=== PATIENT | female | born 2000 | race African-American/Black ===

== ENCOUNTER 2021-09-29 11:51 | Emergency (ER) | payer MEDICAID, SELFPAY ==
[2021-09-29 12:23] VITALS: BP 127/76; PULSE 68; RESP 16; O2SAT 96
[2021-09-29 13:50] LABS: Appearance Urine Clear (Clear); Bilirubin Urine Negative (Negative); Blood Urine Negative (Negative); Color Urine Yellow (Yellow); Glucose Urine UA Negative (Negative); Ketones Urine Negative (Negative); Leukocyte Esterase Ur Negative LEU/UL (Negative); Nitrate Urine Negative (Negative); Protein Urine Negative (Negative); Specific Grav Ur 1.025 (1.001-1.035); Urobilinogen Urine 0.2 mg/dL (<2.0); pH Urine 6.5 (5.0-9.0)
[2021-09-29 13:55] LABS: Add Urine Microscopic? NO
[2021-09-29 15:43] VITALS: BP 130/87; PULSE 87; RESP 18; O2SAT 100
--- NOTE | 2021-09-29 16:25 | ED.FEMALEGU ---
HPI - Female Genitourinary General Chief complaint: Urogenital-Female Stated complaint: uterus pains Time Seen by Provider: 09/29/21 15:31 Source: patient Mode of arrival: ambulatory Limitations: no limitations History of Present Illness HPI Narrative: This is a 21 year old female who presents for evaluation of pelvic pain. She noticed sharp suprapubic pain this morning. She is have constant pressure with intermittent shooting to right lower abdomen. She has nausea but denies vomiting. She denies abnormal vaginal discharge or urinary symptoms. Her pain is worse with movement. Her last menstrual cycle ws 2 weeks ago. She denies history of ovarian cyst. She reports pain is 4/10/ She has not taken anything for pain. Related Data Allergies Allergy/AdvReac Type Severity Reaction Status Date / Time shellfish derived Allergy Unknown Verified 02/02/20 15:23 ENVIRONMENTAL Allergy Mild Uncoded 02/02/20 15:23 Review of Systems Review of Systems: All systems reviewed & are unremarkable except as noted in HPI and below PMFSH Past Medical History Medical History Patient denies medical problems Surgical History Surgical History History of appendectomy Social History Social History Smoking status: Never smoker Alcohol intake: never Exam Const: General: no acute distress and alert Orientation/consciousness: patient oriented x3 Eyes: EOM: EOMs intact bilaterally Resp: Effort & Inspection: normal respiratory effort and no retractions Auscultation: clear to auscultation bilaterally Cardio: Rate: regular rate Rhythm: regular rhythm Heart sounds: no murmurs GI: GI Palp: Yes Soft to palpation, Yes Tenderness to palpation present (GI) (suprapubic), No Guarding due to palpation present (GI) and No Rigid due to palpation Auscultation: normal bowel sounds : Speculum Exam - Vagina: normal vaginal discharge Speculum Exam - Cervix: Cervical os closed Bimanual exam- vagina & uterus: cervical motion tenderness Back/Spine/Pelvis: Back: no CVA tenderness Skin: General skin exam: normal color Rashes: no rashes Neuro: General: patient oriented x3, moves all extremities and CN's II-XI intact bilaterally Extrem: General: normal to inspection Psych: Mental Status: mental status grossly normal Affect: normal affect Course Reevaluation(s) Reevaluation #1: Patient already had appendix taken out. She has CMT on pelvic exam. Will treat with antibiotics and have her follow up with [facility]. Date: 09/29/21 Time: 16:45 Vital Signs Vital signs: Vital Signs Pulse Rate 68 09/29/21 12:23 Respiratory Rate 16 09/29/21 12:23 Blood Pressure 127/76 09/29/21 12:23 Pulse Oximetry 96 09/29/21 12:23 Pulse Rate 87 09/29/21 15:43 Respiratory Rate 18 09/29/21 15:43 Blood Pressure 130/87 09/29/21 15:43 Pulse Oximetry 100 09/29/21 15:43 MDM - Female Genitourinary Lab Data Labs: Lab Results 09/29/21 09/29/21 09/29/21 Range/Units 13:30 16:46 16:46 Urine Color Yellow (Yellow) Urine Appearance Clear (Clear) Urine pH 6.5 (5.0-9.0) Ur Specific [place] 1.025 (1.001-1.035) Urine Protein Negative (Negative) mg/dL Urine Glucose (UA) Negative (Negative) mg/dL Urine Ketones Negative (Negative) mg/dL Ur Blood (Man) Negative (Negative) Urine Nitrate Negative (Negative) Urine Bilirubin Negative (Negative) Urine Urobilinogen 0.2 (<2.0) mg/dL Leukocyte Esterase Rfl Negative (Negative) YARIEL/UL C.trachomatis RNA (TMA) Pending N.gonorrhoeae RNA (TMA) Pending Trichomonas Direct ID Negative (Negative) UCG Bedside Result Negative Reference Range: Negative Discharge Plan Discharge
[2021-09-29] MEDS: DOXYCYCLINE HYCLATE 100 MG TABLET PO (16:59)
[2021-09-29] MEDS: cefTRIAXone 1 GM VIAL 0.5 GM IM (17:00)
[2021-09-29] MEDS: LIDOCAINE HCL 1% LOCAL INJ 20 ML VIAL (17:00)
[2021-09-29 17:34] VITALS: BP 102/78; PULSE 77; RESP 18; O2SAT 98
== END 2021-09-29 17:34 | disposition home or self-care (01) ==
PROVIDERS: Emergency Medicine; Emergency Provider General Practice
DX: N73.0 Acute parametritis and pelvic cellulitis (principal)
CPT/HCPCS: 81003; 81025; 87070; 87491; 87591; 87808; 96372; 99284; A9270; J0696

== ENCOUNTER 2022-05-29 11:55 | Outpatient (CLI) | payer OTHER, SELFPAY ==
--- NOTE | ~2022-05-29 | XR_ITS ---
XR knee LT min 4V DATE: 05/29/2022 12:31 INDICATION: Left knee pain TECHNIQUE: Jenera and weightbearing AP and PA views COMPARISON: None FINDINGS: No fracture or dislocation or joint effusion. Joint spaces are preserved. No radiopaque int ra-articular loose body or chondrocalcinosis. IMPRESSION: Negative Reviewed, dictated and finalized at location B. STORER IMPRESSION: Negative
--- NOTE | ~2022-05-29 | XR_ITS ---
XR chest 2V DATE: 05/29/2022 12:30 INDICATION: Intermittent augmentations, lightheadedness TECHNIQUE: 04/12/2012 two-view chest COMPARISON: None FINDINGS: Normal heart size. No hilar or mediastinal enlargement. No pulmonary infiltrate or consolid ation, pleural effusion or pulmonary vascular congestion. Thoracic and lumbar scoliosis. IMPRESSION: No active cardiopulmonary disease Reviewed, dictated and finalized at location B. ASSISTANT
--- NOTE | ~2022-05-29 | XR_ITS ---
XR cervical spine 4-5V DATE: 05/29/2022 12:30 INDICATION: Neck pain. Left arm tingling. TECHNIQUE: AP, open-mouth, lateral, swimmer views COMPARISON: None FINDINGS: There is reversal of cervical curvature which may be due to muscle spasm. C1 and C2 are normally aligned and the odontoid process is intact. Cervical interspaces are intact. N o fracture or dislocation, locked facet or prevertebral soft tissue swelling. IMPRESSION: Reversal of cervical curvature; otherwise negative Reviewed, dictated and finalized at location B. LER OPERATOR
== END 2022-05-29 11:56 | disposition home or self-care (01) ==
LOC: ANHIMG 12:01
PROVIDERS: PCP Internal Medicine; Visit Provider Internal Medicine
DX: Z00.00 Encounter for general adult medical examination without abnormal findings (principal); M54.2 Cervicalgia; M25.562 Pain in left knee
CPT/HCPCS: 71046; 72050; 73564

== ENCOUNTER 2022-12-23 11:28 | Emergency (ER) | payer OTHER, SELFPAY ==
[2022-12-23 11:37] VITALS: BP 129/68; PULSE 78; RESP 16; TEMP 37.2; O2SAT 99
--- NOTE | 2022-12-23 12:06 | ED.URI ---
HPI - URI/Sore Throat General Chief Complaint: Upper Respiratory Infection Stated Complaint: Sinus/Sore Throat Time Seen by Provider: 12/23/22 12:01 Source: patient and RN notes reviewed Mode of arrival: ambulatory Limitations: no limitations History of Present Illness HPI Narrative: Patient presents today with a 2 day history of postnasal drip, congestion, sore throat, headache. Denies fever shortness of breath. She takes an allergy pill daily for her seasonal allergies, but has not been taking any additional evtg-obn-[id number] medicine for her current symptoms. Currently rates her pain 4/10. Related Data Home Medications Medication Instructions Recorded Confirmed naproxen 500 mg tablet 500 mg PO BID 12/23/22 12/23/22 omeprazole 20 mg capsule,delayed 20 mg PO DAILY 12/23/22 12/23/22 release Allergies Allergy/AdvReac Type Severity Reaction Status Date / Time shellfish derived Allergy Unknown Unknown Verified 12/23/22 11:31 ENVIRONMENTAL Allergy Unknown Unknown Uncoded 12/23/22 11:31 Review of Systems Review of Systems: CONSTITUTIONAL: Denies body aches, fever, chills, or sweats. EYES: Denies visual changes, redness, or discharge. ENT: Denies rhinorrhea, or otalgia.+ Congestion, sore throat, postnasal drip CARDIOVASCULAR: Denies chest pain, palpitations, or edema. RESPIRATORY: Denies cough or dyspnea. GASTROINTESTINAL: Denies abdominal pain, nausea, vomiting, or diarrhea. GENITOURINARY: Denies dysuria or hematuria. SKIN: Denies rash, itching, or wounds. MUSCULOSKELETAL: Denies back pain, joint pain, or myalgia. NEUROLOGIC: Denies numbness, tingling, or weakness.+ headache PSYCH: Denies depression or anxiety. [facility] Past Medical History Medical History (Updated 12/23/22 @ 12:11 by Mellissa Rodriguez, TAMIR, BC) Appendicitis with peritonitis Patient denies medical problems Seasonal allergies Surgical History Surgical History History of appendectomy Social History Social History Smoking status: Never smoker Alcohol intake: never Comments At time of signature, I have reviewed and agree with nursing past medical, surgical, social and family history unless otherwise noted. Please see nursing chart for further information. There is no relevant family history pertinent to the presenting complaint Exam Narrative: GENERAL: Well-appearing, well-nourished, and in no acute distress. HEAD: Normocephalic, atraumatic. EYES: EOMI. No redness or drainage. Conjunctivae normal. ENT: Mucous membranes pink and moist. Nares congested. No rhinorrhea. TMs normal bilaterally. Throat normal. Uvula midline. NECK: Normal AROM. Supple. bilateral anterior cervical chain lymphadenopathy. CHEST: No respiratory distress. Clear to auscultation. HEART: Regular rate and rhythm. No murmur appreciated. Normal peripheral pulses. EXTREMITIES: Normal range of motion. No edema. SKIN: Warm, dry, no rash. Capillary refill normal. Normal skin turgor. NEURO: No focal deficits. Alert and oriented x3. Gait steady. PSYCH: Normal affect. No signs of depression or anxiety. Course Course Level of Care: Express Care Visit Vital Signs Vital signs: Vital Signs Temperature 99.0 F 12/23/22 11:37 Pulse Rate 78 12/23/22 11:37 Respiratory Rate 16 12/23/22 11:37 Blood Pressure 129/68 12/23/22 11:37 Pulse Oximetry 99 12/23/22 11:37 Oxygen Delivery Room Air 12/23/22 11:37 Temperature 99.0 F 12/23/22 11:37 Pulse Rate 78 12/23/22 11:37 Respiratory Rate 16 12/23/22 11:37 Blood Pressure 129/68 12/23/22 11:37 Pulse Oximetry 99 12/23/22 11:37 Oxygen Delivery Room Air 12/23/22 11:37 Reviewed. Pt has been instructed to follow up with her PCP regarding her elevated blood pressure today. MDM - URI/Sore Throat MDM Narrative Medical decision making narrative:
== END 2022-12-23 12:19 | disposition home or self-care (01) ==
PROVIDERS: Emergency Provider Nurse Practitioner; PCP Internal Medicine
DX: J06.9 Acute upper respiratory infection, unspecified (principal)
CPT/HCPCS: 87081; 87880; 99213; G0463

== ENCOUNTER 2024-02-23 11:03 | Emergency (ER) | payer OTHER, SELFPAY ==
[2024-02-23 11:13] VITALS: BP 121/68; PULSE 68; RESP 18; TEMP 37.2; O2SAT 100
--- NOTE | 2024-02-23 11:39 | ED.EYEPROB ---
HPI - Eye Problem General Chief complaint: Eye Problems Stated complaint: Left Eye Irritation Time Seen by Provider: 02/23/24 11:39 Source: patient, RN notes reviewed and old records reviewed Mode of arrival: ambulatory Limitations: no limitations History of Present Illness HPI Narrative: Patient complains of painful lump below the left eye. She reports this has been present for couple of days, worsening. She denies any visual disturbances. She denies any injury or trauma. She voices no other concerns or complaints at this time Related Data Allergies Allergy/AdvReac Type Severity Reaction Status Date / Time shellfish derived Allergy Unknown Unknown Verified 02/23/24 11:07 ENVIRONMENTAL Allergy Unknown Unknown Uncoded 02/23/24 11:07 Review of Systems Review of Systems: All systems reviewed & are unremarkable except as noted in HPI and below Constitutional: Constitutional: Reports no additional constitutional complaints Eyes: Eyes: Reports as per HPI, Reports no additional eye complaints and Denies change in vision ENT: Reports system reviewed and no additional complaints, except as documented and Reports as per HPI Cardiovascular: Cardiovascular: Reports no additional cardiovascular complaints Respiratory: Respiratory: Reports no additional respiratory complaints Gastrointestinal: Gastrointestinal: Reports no additional gastrointestinal complaints [facility] Past Medical History Medical History (Updated 02/24/24 @ 00:00 by Ravinder Martin) Appendicitis with peritonitis Patient denies medical problems Seasonal allergies Surgical History Surgical History History of appendectomy Social History Social History Smoking status: Never smoker Alcohol intake: never Comments At the time of my signature, I reviewed and agree with the nursing past medical, surgical, social, and family history. There is no relevant family history pertinent to the patient complaint. Exam Const: General: cooperative, no acute distress, alert and awake Orientation/consciousness: oriented to person, oriented to place and oriented to time HENMT: Head: normal to inspection Mouth: Yes moist mucous membranes Eyes: Alignment and Position: alignment normal and position normal Eyelids: eyelid abnormality left lower eyelid swelling, tenderness and other (Pustule at lower lash line) Conjunctivae: conjunctivae normal Sclera: sclerae normal Cornea: corneas normal Pupils: Equal, round and reactive pupils present and Pupils normal by confrontation EOM: EOMs intact bilaterally Resp: Effort & Inspection: normal respiratory effort and able to speak in complete sentences Auscultation: clear to auscultation bilaterally, no crackles, no rales, no rhonchi and no wheezes Cardio: Palpation: normal PMI Rate: regular rate Rhythm: regular rhythm Heart sounds: S1 normal heart sound present and S2 normal heart sound present Neuro: General: oriented to person, oriented to place and oriented to time Cranial nerves: Yes CN's II-XII intact bilaterally Psych: Appearance: grossly normal Thought process: Normal thought process present Insight: Good insight present (Psych) Judgement: Good judgement present (Psych) Course Course Level of Care: Express Care Visit Vital Signs Vital signs: Vital Signs Temperature 99 F 02/23/24 11:13 Pulse Rate 02/23/24 11:13 Respiratory Rate 02/23/24 11:13 Blood Pressure 121/68 02/23/24 11:13 Pulse Oximetry 100 02/23/24 11:13 Oxygen Delivery Room Air 02/23/24 11:13 Temperature 99 F 02/23/24 11:13 Pulse Rate 02/23/24 11:13 Respiratory Rate 02/23/24 11:13 Blood Pressure 121/68 02/23/24 11:13 Pulse Oximetry 100 02/23/24 11:13 Oxygen Delivery Room Air 02/23/24 11:13 Reviewed MDM - Eye Problem MDM Narrative Medical decision making narrative: taras
== END 2024-02-23 12:30 | disposition home or self-care (01) ==
PROVIDERS: Emergency Provider Nurse Practitioner Family; PCP Internal Medicine
DX: H00.15 Chalazion left lower eyelid (principal)
CPT/HCPCS: 99213; G0463

== ENCOUNTER 2024-03-13 17:25 | Emergency (ER) | payer OTHER, SELFPAY ==
[2024-03-13 17:27] VITALS: BP 133/72; PULSE 83; RESP 20; TEMP 37.7; O2SAT 100
--- NOTE | 2024-03-13 17:51 | ED.URI ---
HPI - URI/Sore Throat General Chief Complaint: Upper Respiratory Infection Stated Complaint: Cough Time Seen by Provider: 03/13/24 17:51 Source: patient, RN notes reviewed and old records reviewed Mode of arrival: ambulatory Limitations: no limitations History of Present Illness HPI Narrative: Patient presents with complaints of 2 days of cough and runny nose. She does have a low-grade fever. She reports she has been taking Advil cold and Sinus with moderate results. She is not in any distress. She voices no other concerns or complaints at this time. Related Data Allergies Allergy/AdvReac Type Severity Reaction Status Date / Time shellfish derived Allergy Unknown Unknown Verified 03/13/24 17:27 ENVIRONMENTAL Allergy Unknown Unknown Uncoded 03/13/24 17:27 Review of Systems Review of Systems: All systems reviewed & are unremarkable except as noted in HPI and below Constitutional: Constitutional: Reports no additional constitutional complaints ENT: Reports system reviewed and no additional complaints, except as documented, Reports as per HPI and Reports nasal discharge Cardiovascular: Cardiovascular: Reports as per HPI and Reports no additional cardiovascular complaints Respiratory: Respiratory: Reports as per HPI, Reports no additional respiratory complaints, Reports cough, Denies stridor and Denies wheezing Gastrointestinal: Gastrointestinal: Reports no additional gastrointestinal complaints [facility] Past Medical History Medical History Appendicitis with peritonitis Patient denies medical problems Seasonal allergies Surgical History Surgical History History of appendectomy Social History Social History Smoking status: Never smoker Alcohol intake: never Comments At the time of my signature, I reviewed and agree with the nursing past medical, surgical, social, and family history. There is no relevant family history pertinent to the patient complaint. Exam Const: General: cooperative, no acute distress, alert and awake Orientation/consciousness: oriented to person, oriented to place and oriented to time HENMT: Head: normal to inspection Ears: TM's normal bilaterally Mouth: Yes moist mucous membranes Throat: postnasal drainage Resp: Effort & Inspection: normal respiratory effort and able to speak in complete sentences Auscultation: clear to auscultation bilaterally, no crackles, no rales, no rhonchi and no wheezes Cardio: Palpation: normal PMI Rate: regular rate Rhythm: regular rhythm Heart sounds: S1 normal heart sound present and S2 normal heart sound present Neuro: General: oriented to person, oriented to place and oriented to time Cranial nerves: Yes CN's II-XII intact bilaterally Psych: Appearance: grossly normal Thought process: Normal thought process present Insight: Good insight present (Psych) Judgement: Good judgement present (Psych) Course Course Level of Care: Express Care Visit Vital Signs Vital signs: Vital Signs Temperature 100 F H 03/13/24 17:27 Pulse Rate 83 03/13/24 17:27 Respiratory Rate 20 03/13/24 17:27 Blood Pressure 133/72 03/13/24 17:27 Pulse Oximetry 100 03/13/24 17:27 Oxygen Delivery Room Air 03/13/24 17:27 Temperature 100 F H 03/13/24 17:27 Pulse Rate 83 03/13/24 17:27 Respiratory Rate 20 03/13/24 17:27 Blood Pressure 133/72 03/13/24 17:27 Pulse Oximetry 100 03/13/24 17:27 Oxygen Delivery Room Air 03/13/24 17:27 Reviewed MDM - URI/Sore Throat MDM Narrative Medical decision making narrative: Patient negative for COVID and flu. She is nontoxic appearing, stable for discharge home with supportive care measures. Prescribed cough medications, advised to take Tylenol and/or ibuprofen per package instructions as needed for fever or pain. Work note provided.
[2024-03-13 18:16] LABS: EDCOVIDSCREEN Negative (Negative); EDINFLUASCREEN Negative (Negative); EDINFLUBSCREEN Negative (Negative)
== END 2024-03-13 18:27 | disposition home or self-care (01) ==
PROVIDERS: Emergency Provider Nurse Practitioner Family; PCP Internal Medicine
DX: J06.9 Acute upper respiratory infection, unspecified (principal); Z20.822 Contact with and (suspected) exposure to COVID-19
CPT/HCPCS: 87426; 87804; 99213; G0463

== ENCOUNTER 2024-06-15 08:20 | Emergency (ER) | payer OTHER, SELFPAY ==
--- NOTE | ~2024-06-15 | XR_ITS ---
XR chest 2V Ordering provider: Ella Santos APRN History: 24 years Female with . cough fever x 4 days . Comparison: May 29, 2022 FINDINGS: MEDIASTINUM: The cardiac silhouette is not enlarged. LUNGS: No \effusions or pneumothorax. Bilateral perihilar prominent bronchovascular markings with min imal opacification in the left perihilar area suggestive of bronchopneumonia. Follow-up advised. OTHER: No free air under the diaphragm. IMPRESSION: Early bronchopneumonia. Follow-up to resolution is advised. Reviewed, dictated and finalized at location A. ICATIONS DEVELOPER
[2024-06-15 08:27] VITALS: BP 122/75; PULSE 82; RESP 16; TEMP 36.7; O2SAT 100
--- NOTE | 2024-06-15 08:34 | ED.URI ---
HPI - URI/Sore Throat General Chief Complaint: Upper Respiratory Infection Stated Complaint: flu like symptoms Time Seen by Provider: 06/15/24 08:35 Source: patient, RN notes reviewed and old records reviewed Mode of arrival: ambulatory Limitations: no limitations History of Present Illness HPI Narrative: [age] year female presents to the [facility] with 2 day history of feeling feverish, cough, congestion, intermittent dizziness. Reports that she feels like she is wheezing. Has taken Advil cough cold. Onset (ago): day(s) (2) Related Data Allergies Allergy/AdvReac Type Severity Reaction Status Date / Time shellfish derived Allergy Unknown Unknown Verified 06/15/24 08:49 ENVIRONMENTAL Allergy Unknown Unknown Uncoded 06/15/24 08:49 Review of Systems Review of Systems: All systems reviewed & are unremarkable except as noted in HPI and below Constitutional: Constitutional: Reports as per HPI, Reports body ache(s), Reports chills and Reports fever(s) (Subjective) ENT: Reports system reviewed and no additional complaints, except as documented Cardiovascular: Cardiovascular: Reports no additional cardiovascular complaints, Denies chest pain and Denies dyspnea Respiratory: Respiratory: Reports as per HPI, Reports chest congestion, Reports cough and Denies dyspnea Musculoskeletal: Musculoskeletal: Reports no additional musculoskeletal complaints Integumentary/Breasts: Skin/Breast: Reports system reviewed and no additional complaints, except as docu PMFSH Past Medical History Medical History Appendicitis with peritonitis Seasonal allergies Patient denies medical problems Surgical History Surgical History History of appendectomy Social History Social History Smoking status: Never smoker Alcohol intake: never Comments At the time of my signature, I reviewed and agree with the nursing past medical, surgical, social, and family history. There is no relevant family history pertinent to the patient complaint. Exam Const: General: cooperative, healthy appearing, comfortable, no acute distress, well developed, alert and well nourished Nutritional Appearance: well nourished Orientation/consciousness: patient oriented x3 Limitations: no limitations HENMT: Head: normal to inspection Ears: hearing grossly normal bilaterally, external ears normal, TM's normal bilaterally, EAC's normal, mastoids normal and no periauricular adenopathy Face/Nose/Sinus: normal facial exam and face symmetric Face and sinus: normal facial exam and face symmetric Mouth: Yes Normal oral and palatal mucosa present, Yes lip normal, Yes tongue normal and Yes moist mucous membranes Throat: posterior oropharynx normal, tonsils normal, uvula midline and no uvular edema Eyes: General: appearance normal, both eyes and all related structures Neck: Neck: normal visual inspection, full ROM, no lymphadenopathy and no meningeal signs Chest: Chest palpation & inspection: normal inspection of the chest Resp: Effort & Inspection: normal respiratory effort and able to speak in complete sentences Auscultation: no crackles, no rales, no rhonchi, wheezes and diminished lung sounds on the right in the lower lung wiley Cardio: Rate: regular rate Skin: General skin exam: normal color and no rashes or lesions noted Neuro: General: patient oriented x3, gait normal, moves all extremities and no meningeal signs Cognition (Neuro): normal cognition Speech: normal speech Gait exam (Neuro): Normal gait present Extrem: General: normal to inspection, full ROM, capillary refill normal and normal gait Psych: Appearance: grossly normal and well kempt Mental Status: mental status grossly normal Speech and movement: Normal speech and movement present and Clear speech present Affect: normal affect Attitude: cooperative Course Course Level of Care: Express Care Visit Vital Signs Vital signs: Vital Signs Temperature 98.0 F 06/15/24 08:27 Pulse Rate 82 06/15/24 08:27 Respiratory Rate 16 06/15/24 08:27 Blood Pressure 122/75 06/15/24 08:27 Pulse Oximetry 100 06/15/24 08:27 Oxygen Delivery Room Air 06/15/24 08:27 Temperature 98.0 F 06/15/24 08:27 Pulse Rate 82 06/15/24 08:40 Respiratory Rate 16 06/15/24 08:40 Blood Pressure 122/75 06/15/24 08:27 Pulse Oximetry 100 06/15/24 08:40 Oxygen Delivery Room Air 06/15/24 08:27 Reviewed MDM - URI/Sore Throat MDM Narrative Medical decision making narrative: Patient sitting in exam. Nontoxic vitals stable. Patient presents with 2 day history of URI symptoms. Chest x-ray shows pneumonia. Flu and COVID were negative in clinic. Patient appropriate for outpatient treatment and follow-up Discharge instructions reviewed with patient, as well as provided in writing per nursing staff. The instructions also include specific and strict return/GO TO THE ER as well as f/u information. All questions have been answered, and the patient deny any further questions with discharge and discharge plan. Some parts of this dictation were generated by voice recognition software and may contain typographical and/or grammatical inaccuracies. Differential Diagnosis Differential diagnosis: Likely upper respiratory infection, otitis media, sinusitis, viral infection, bronchitis and pharyngitis Lab Data Labs: Lab Results 06/15/24 Range/Units 08:48 POC Influenza A Ag Negative (Negative) POC Influenza B Ag Negative (Negative) POC SARS CoV-2 Ag Negative (Negative) Reviewed Imaging Data Radiologist's impression: XR chest 2V Ordering provider: Ella Santos APRN History: 24 years Female with . cough fever x 4 days . Comparison: May 29, 2022 FINDINGS: MEDIASTINUM: The cardiac silhouette is not enlarged. LUNGS: No \effusions or pneumothorax. Bilateral perihilar prominent bronchovascular markings with minimal opacification in the left perihilar area suggestive of bronchopneumonia. Follow-up advised. OTHER: No free air under the diaphragm. IMPRESSION: Early bronchopneumonia. Follow-up to resolution is advised. Critical Care Time Critical Care Time Critical Care Time: No Discharge Plan Discharge Clinical Impression: Pneumonia Qualifiers: Pneumonia type: due to unspecified organism Laterality: unspecified laterality Lung location: unspecified part of lung Qualified Code(s): J18.9 - Pneumonia, unspecified organism Patient Disposition: Home, Self-Care Condition: Stable Instructions: Antibiotic Form, Pneumonia (ED) Additional Instructions: Your flu and COVID were negative Your x-ray showed early pneumonia, you are being treated with an antibiotic. It is recommended you follow-up with your primary care provider in about 2 weeks for a repeat chest x-ray Is important you remember to take good deep breaths. For new or worsening symptoms go directly to the emergency room Patient Language: German Prescriptions: New doxycycline monohydrate 100 mg tablet 100 mg PO BID Qty: 14 0RF albuterol sulfate 90 mcg/actuation HFA aerosol inhaler 2 puff inhalation QID PRN (Reason: shortness of breath or wheezing) Qty: 6.7 0RF (DME) Aerochamber MV Spacer See Rx Instructions .Route Qty: 1 0RF Rx Instructions: As directed Follow-up/Referrals: ,Jeremiah Rowland MD [Primary Care Provider] - 2 Weeks ([facility] follow-up Pneumonia) Stand Alone Forms: Work/School Release IP Time of Disposition: 09:16
[2024-06-15 08:40] VITALS: PULSE 82; RESP 16; O2SAT 100
[2024-06-15 08:51] LABS: EDCOVIDSCREEN Negative (Negative); EDINFLUASCREEN Negative (Negative); EDINFLUBSCREEN Negative (Negative)
== END 2024-06-15 09:25 | disposition home or self-care (01) ==
PROVIDERS: Emergency Provider Nurse Practitioner; PCP Internal Medicine
DX: J18.9 Pneumonia, unspecified organism (principal); Z20.822 Contact with and (suspected) exposure to COVID-19
CPT/HCPCS: 71046; 87426; 87804; 99213; G0463

== ENCOUNTER 2024-09-15 14:33 | Emergency (ER) | payer OTHER, SELFPAY ==
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
[2024-09-15 14:35] VITALS: BP 130/74; PULSE 78; RESP 18; TEMP 36.6; O2SAT 100
--- OUTSIDE RECORDS SUMMARY | 2024-09-15 14:36 | XMS_ITS | Patient Health Record ---
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 Name Role Phone Jeremiah Hernandez Primary Care Provider Allergies No Known Allergies Reason For Referral No Information Medications Medication SIG (Take, Route, Frequency, Duration) Notes Start Date End Date Status Omeprazole 20 MG TAKE 1 CAPSULE BY SHYANN REYNA EVERY DAY 30 MINUTES BEFORE MORNING MEAL FOR 30 DAYS for 30 days Active Amoxicillin 500 MG 1 capsule Orally keyon ry 8 hrs for 7 days 07/29/2022 Not-Taking Ibuprofen 200 MG 2 tablets with food or milk as needed Orally every 8 hrs Not-Taking Zithromax Z-Danilo 250 MG as directed Orall y Every day for 5 days 05/13/2022 Not-Taking Tessalon Perles 100 MG 1 capsule as need ed Orally Three times a day for 7 days 05/13/2022 Not-Taking Naprosyn 500 MG 1 tablet with food o r milk as needed Orally every 12 hrs for 30 days 11/26/2022 Active Social History Tobacco Use: Social History Observation Description Date Details (start date - stop date) Never Smoker NA - NA Tobacco Use/Smoking Question Answer Notes Are you a nonsmoker Alcohol Screen (Audit-C) Question Answer Notes Did you have a drink contain ing alcohol in the past year? Yes How often did you have a dri nk containing alcohol in the past year? 2 to 4 times a month (2 points) How many drinks did you have on a typical day when you were drinking in the past year? 1 or 2 drinks (0 point) How often did you have 6 or more drinks on one occasion in the past year? Never (0 point) Points 2 Interpretation Negative Problems Problem Type SNOMED Code ICD Code Onset Dates Problem Status W/U Status Risk Notes Problem 89117597 Other chronic pa in (G89.29) Active confirmed Problem 7211593631 Pain in left kne e (M25.562) Active confirmed Problem 52646062 Palpitations (R00.2) Active confirmed Problem 49359760 Anxiety (F41.9) Active confirmed Problem 661605970 Gastroesophageal reflux disease without esophagitis (K21.9) Active confirmed Problem 91248832 Neck pain (M54.2) Active confirmed Problem 06183274 Bronchitis (J40) Active confirmed Problem 57847925 Lymphadenitis (I88.9) Active confirmed Problem 689690180 Pharyngitis, unspecified etiology (J02.9) Active confirmed Problem 49745599 Impacted cerumen of right ear (H61.21) Active confirmed Problem 70809861 Acute otitis ext adrien of right ear, unspecified type (H60.501) Active confirmed Problem 42438105 Rhinitis, unspecified type (J31.0) Active confirmed Problem 723395459 COVID-19 virus infection (U07.1) Active confirmed Problem 4566647523 S/P laparoscopic appendectomy (Z90.49) Active confirmed Problem 39894884 Sleep disturbanc e (G47.9) Active confirmed Problem 70176749 Perspiration-exc essi ve (R61) Active confirmed Problem 390337780 Abnormal thyroid blood test (R79.89) Active confirmed Plan Of Treatment Pending Test Test Name Order Date LIPID PANEL 05/13/2022 COMPREHENSIVE METABOLIC PANEL 05/13/2022 CBC (INCLUDES DIFF/PLT) 05/13/2022 URINALYSIS, COMPLETE W/REFLEX TO CULTURE 05/13/2022 HCG, QL, URINE 05/13/2022 HEMOGLOBIN A1c 05/13/2022 T4, FREE 05/13/2022 T4 (THYROXINE), TOTAL 05/29/2022 T3, TOTAL 05/29/2022 TSH 05/13/2022 TSH 05/29/2022 T3, FREE 05/13/2022 REFLEXIVE URINE CULTURE 05/13/2022 Insurance Providers Payer Name Payer Address Payer Phone Subscriber Number Group Number Insured Name Patient Relationship to Insured Coverage Start Date Coverage End Date [employer] [address] [place] [address] [phone] [id number] Lupis Luther Self - patient is the insured 2 Medical (General) History Surgical History Surgery Date(Month/Year) Appendectomy 2018 Hospitalization History Reason Date(Month/Year)
--- OUTSIDE RECORDS SUMMARY | 2024-09-15 14:36 | XMS_ITS | Clinical Summary ---
Author Organization [facility] [employer] Address [address] [facility] [place] [address] Care Team Providers Care Admission Nurse Name Role Phone Nusrat Jose MD Primary Care Provider [phone] Nusrat Jose MD Unavailable [phone] Source Comments [facility],non-owned Affiliates and Associated Physician Practices is amultiple site organization consisting of ambulatory clinics and hospital sitesin [place], [place], [place] and [place]. This disclosure is being madepursuant to the Care Everywhere program and may not contain all information available regarding this patient. Last updated 18.[facility] Allergies Active Allergy Reactions Criticality Noted Date Comments Shellfish Allergy Other 08/26/2018 Allergy test Medications * Be aware that medications may not be up to date on this document. Alwaysverify current medications with the patient. Medication Sig Dispensed Refills Start Date End Date Status medroxyPROGESTERone (DEPO-PROVERA) 150 MG/ML vial Inject 150 mg into muscle Every 90 days 06/07/2018 Active montelukast (SINGULAIR) 10 MG tabletIndications:Sea augustine allergic rhinitis due to pollen Take 1 tablet by mouth at bedtime 90 tablet 2 11/15/2018 Active medroxyPROGESTERone (DEPO-PROVERA) 150 MG/ML vial INJECT 1 ML INTO MUSCLE ONCE FOR 1 DOSE 1 mL 12/16/2018 Active Active Problems Problem Noted Date Diagnosed Date Dysuria 06/23/2018 Well child visit 04/10/2014 Overview (03/26/2018): 15 yr 01/29/16 17 yr 03/08/17 18 yr 03/26/18 Wears glasses 04/10/2014 Screening for condition 04/10/2014 Overview (03/21/2015): Hgb: 12.7 (04/10/14) Immunizations Name Administration Dates Next Due DTaP VACCINE IM (6wk-6yrs) 02/25/2005,,2000,06/28,2000 HEP A PEDS 2 DOSE 07/01/2016,04/10/2014 HEP B VACCINE, PED/ADOL 04/28/2001,02/24,2000,04/28 HIB-PRP-T 4 DOSE 04/28/2001, 1,2000,06/28,2000 Human Papilloma Virus Nineva lent Vaccine 01/29/2016 Human Papilloma Virus Eben valent Vaccine 04/10/2014 Human Papilloma Virus Vaccine 02/17/2013 INFLUENZA VACCINE 05/10/2013,02/20/2010,05/07/20 08 INFLUENZA VACCINE, QUADR. (A FLURIA, FLUZONE QUADRIVALENT; 6MO+) (IIV4) 04/10/2014 INFLUENZA VACCINE, QUADR. (F LUZONE; FLULAVAL; FLUARIX; AFLURIA QUADRIVALENT; 6MO+), 0.5 ML (IIV4) 03/08/2017,07/01/2016 MENINGOCOCAL MENINGITIS 05/10/2013 MENINGOCOCCAL CONJUGATE (MCV4P) 07/01/2016 MMR 02/25/2005,05/19/2001 POLIO IPV 02/25/2005, 1,2000,06/28,2000 TDAP (7yrs+) 02/17/2013 VARICELLA 05/10/2013,09/25/2004 Social History Tobacco Use Types Packs/Day Years Used Date Smoking Tobacco: Never Alcohol Use Standard Drinks/Week Comments No 0 (1 standard drink = 0.6 oz pur e alcohol) Sex and Gender Information Value Date Recorded Sex Assigned at Not on file Gender Identity Not on file Sexual Orientation Not on file Last Filed Vital Signs Vital Sign Reading Time Taken Comments Blood Pressure 118/72 03/26/2018 9:29 AM CDT Pulse - - Temperature 37.2 C (99 F) 06/22/2018 4:25 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 Respiratory Rate - - Oxygen Saturation - - Inhaled Oxygen Concentration - - Weight 68.3 kg (150 lb 9.6 oz) 06/22/2018 4:25 P M PRODUCTION TEAM MEMBER Height 163 cm (5' 4.17 ) 03/26/2018 9:29 AM CDT Body Mass Index 25.71 03/26/2018 9:29 AM CDT Plan of Treatment Health Maintenance Due Date Last Done Comments PAP SMEAR 2000 HEPATITIS C SCREENING 02/06/2018 CHLAMYDIA/GONORRHEA SCREENING 09/24/2018 09/24/2017 DTAP/TDAP/TD VACCINES (7 - Td or Tdap) 02/17/2023 02/17/2013, 02/25/2005, 04/28/2001, Additional history exists COVID-19 VACCINE ( season) 2024 INFLUENZA VACCINE (#1) 2024 7, 07/01/2016, 04/10/2014, Additional history exists DEPRESSION SCREENING 06/21/2024 ZOSTER VACCINE (1 of 2) 02/10/2050 HEPATITIS B VACCINE Completed 04/28/2001, 02/24/2001, 2000, Additional history exists HIB VACCINE Completed 04/28/2001, 11/2000, 2000, Additional history exists HPV VACCINE Completed 01/29/2016, 03/22, 02/17/2013 MENINGOCOCCAL GROUPS A/C/Y/W VACCINE Completed 07/01/2016, 05/10/2013 HIV SCREENING Completed 10/27/2017 MENINGOCOCCAL (Group B) VACCINE SHARED DECISION-MAKING Aged Out No longer eligible based on patient's age to complete this topic PNEUMOCOCCAL VACCINE Aged Out No long er eligible based on patient's age to complete this topic Goals Goal Patient Goal Type Associated Problems Recent Progress Patient-Stated? Author Exercise 3X per week (30 min per time) Exercise On track( 019 4:26 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) No Helfer, Giselle Use safety retraint in car Lifestyle On track( 019 4:26 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) Marina Cunningham Procedures Procedure Name Priority Date/Time Associated Diagnosis Comments HIV-1 HIV-2 ANTIGEN/ANTIBODY W RFLX 10/27/2017 3:32 PM CDT CHLAMYDIA + GC AMPLIFIED PROBE Routine 09/24/2017 4:04 PM CDT Sexually active at young age from Last 3 Months or Most Recently Relevant to Health Maintenance Results * HIV-1 HIV-2 ANTIGEN/ANTIBODY W RFLX (10/27/2017 3:32 PM CDT) HIV Screen 4th Generation w Reflex Non Reactive Non Reactive [facility] INSURANCE BILL 10/27/2017 3:32 PM CDT 10/27/2017 Narrative Resulting Agency Comment [facility] [place] [address] [facility] [id number] Nusart Jose MD LAB - SEROLOGY ORDER RONI [facility] INSURANCE BILL [address] [place] [address] * CHLAMYDIA + GC AMPLIFIED PROBE (09/24/2017 4:04 PM CDT) Chlamydia SEA Urine Negative Negative [facility] INSURANCE BILL GC SEA Urine Negative Negative [facility] INSURANCE BILL Microbiology URINE / Unknown 09/24/2017 4 :04 PM CDT 09/24/2017 Narrative Resulting Agency Comment [facility] [address] [id number] Nusrat Jose MD LAB - MICROBIOLOGY O RDERABLES [facility] INSURANCE BILL [address] [place] [address] from Last 3 Months or Most Recently Relevant to Health Maintenance Care Teams Admission Nurse Relationship Specialty Start Date End Date Nusrat Jose MD PCP - General 07/27/18 Nusrat Jose MD [address] [place] [address] Pediatrics 07/27/18
[2024-09-15] MEDS: ACETAMINOPHEN 500 MG TABLET 1000 MG PO (16:44)
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
[2024-09-15 18:58] VITALS: BP 125/83; PULSE 91; RESP 18; O2SAT 100
--- OUTSIDE RECORDS SUMMARY | 2024-09-15 19:01 | XMS_ITS | Clinical Summary ---
Author Organization [facility] [employer] Address [address] [place] [address] Care Team Providers Care Regulatory Affairs Assistant Name Role Phone Nusrat Jose MD Primary Care Provider [phone] Nusrat Jose MD Unavailable [phone] Source Comments [facility],non-owned Affiliates and Associated Physician Practices is amultiple site organization consisting of ambulatory clinics and hospital sitesin [place], [place], [place] and [place]. This disclosure is being madepursuant to the Care Everywhere program and may not contain all information available regarding this patient. 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 Respiratory Rate - - Oxygen Saturation - - Inhaled Oxygen Concentration - - Weight 68.3 kg (150 lb 9.6 oz) 06/22/2018 4:[address] CONSTRUCTION INSPECTOR Height 163 cm (5' 4.17 ) 03/26/2018 [...] time) Exercise On track( 019 4:[address] CONSTRUCTION INSPECTOR) No Helfer, Giselle Use safety retraint in car Lifestyle On track( 019 4:[address] CONSTRUCTION INSPECTOR) Marina Cunningham Procedures Procedure Name Priority Date/Time [...] CDT 10/27/2017 Narrative Resulting Agency Comment [facility] [place] [address] [facility] [id number] Nusrat Jose MD LAB - SEROLOGY ORDER RONI [facility] INSURANCE BILL [address] [place] [address] * CHLAMYDIA + GC AMPLIFIED PROBE (09/24/2017 4:04 PM CDT) Chlamydia SEA Urine Negative Negative [facility] INSURANCE BILL GC SEA Urine Negative Negative [facility] INSURANCE BILL Microbiology URINE / Unknown 09/24/2017 4 :04 PM CDT 09/24/2017 Narrative Resulting Agency Comment [facility] [address] [id number] Nusrat Jose MD LAB - MICROBIOLOGY O RDERABLES [facility] INSURANCE BILL [address] [place] [address] from Last 3 Months or Most Recently Relevant to Health Maintenance Care Teams Regulatory Affairs Assistant Relationship Specialty Start Date End Date Nusrat Jose MD PCP - General 07/27/18 Nusrat Jose MD [address] [place] [address] Pediatrics 07/27/18
== END 2024-09-15 19:01 | disposition home or self-care (01) ==
LOC: ANHED 19:00
PROVIDERS: Emergency Provider Student in an Organized Health Care Education/Training Program; PCP Internal Medicine
DX: S06.0X0A Concussion without loss of consciousness, initial encounter (principal); V43.52XA Car driver injured in collision with other type car in traffic accident, initial encounter; Y92.410 Unspecified street and highway as the place of occurrence of the external cause
CPT/HCPCS: 70450; 99284; A9270

== ENCOUNTER 2025-03-25 10:09 | Emergency (ER) | payer OTHER, SELFPAY ==
--- OUTSIDE RECORDS SUMMARY | 2024-11-10 05:45 | XMS_ITS ---
Author Organization [facility] Address [address] [address] Care Team Providers Care Food Service Order Clerk Name Role Phone Jeremiah Hernandez Primary Care Provider [phone] Medications Medication SIG (Take, Route, Frequency, Duration) Notes Start Date End Date Status Naprosyn 500 MG 1 tablet with food o r milk as needed Orally every 12 hrs; Duration: 30 days 11/26/2022 Active Tessalon Perles 100 MG 1 capsule as need ed Orally Three times a day; Duration: 7 days 05/13/2022 Not-Taking Zithromax Z-Danilo 250 MG as directed Orall y Every day; Duration: 5 days 05/13/2022 Not-Taking Ibuprofen 200 MG 2 tablets with food or milk as needed Orally every 8 hrs Not-Taking Omeprazole 20 MG TAKE 1 CAPSULE BY [facility] EVERY DAY 30 MINUTES BEFORE MORNING MEAL FOR 30 DAYS; Duration: 30 days Active Amoxicillin 500 MG 1 capsule Orally keyon ry 8 hrs; Duration: 7 days 07/29/2022 Not-Taking Encounters Encounter Location Date Provider Diagnosis [facility] [address] [facility] [address] [place] [address] 11/10/2024 Jeremiah Hernandez Plan Of Treatment No Information Progress Notes * Carla GARCIAB:2000 (25 yo F)Acc No.[id number]:11/10/2024 Progress Notes Patient: True Lupis MONTOYA Provider: Fermin Hernandez M.D. :2000 A ge:24 Y S ex:Female Date:11/10/2024 Address:[address] [place] [address], [place] [address] Subjective: * Chief Complaints: * * Medical History: * Medications: T aking Naprosyn 500 MG Tablet 1 tablet with food or milk as needed Orally every 12 hrs , Taking Omeprazole 20 MG Capsule Delayed Release TAKE 1 CAPSULE BY MOUTH EVERY DAY 30 MINUTES BEFORE MORNING MEAL FOR 30 DAYS , Not-Taking/PRN Amoxicillin 500 MG Capsule 1 capsule Orally every 8 hrs , Not-Taking/PRN Ibuprofen 200 MG Tablet 2 tablets with food or milk as needed Orally every 8 hrs , Not-Taking/PRN Zithromax Z-Danilo 250 MG Tablet as directed Orally Every day , Not-Taking/PRN Tessalon Perles 100 MG Capsule 1 capsule as needed Orally Three times a day Objective: * Vitals: Assessment: Plan: * Treatment: * * Electronic signature of Yonas Hernandez MD on 03/25/2025 at 11:12 AM EDT Sign off status: Pending * Provider: Fermin Hernandez M.D. Date: 0 11/10/2024 Generated for Carole stewart/Aneudy/Deidra on: 1 11:12 AM EDT
--- OUTSIDE RECORDS SUMMARY | 2025-02-09 05:15 | XMS_ITS ---
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 Role Phone Jeremiah Hernandez Primary Care Provider Allergies No Known Allergies REASON FOR VISIT c/o asthma flair, c/o neck pain x 3 years Medications Medication SIG (Take, Route, Frequency, Duration) Notes Start Date End Date Status Zithromax Z-Danilo 250 MG as directed Orall y Every day; Duration: 5 days 05/13/2022 Not-Taking Tessalon Perles 100 MG 1 capsule as need ed Orally Three times a day; Duration: 7 days 05/13/2022 Not-Taking Albuterol Sulfate HFA 108 (90 Base) MCG/ACT 2 puff Inhalation every 6 hrs; Duration: 30 days As needed 02/09/2025 Active Amoxicillin 500 MG 1 capsule Orally keyon ry 8 hrs; Duration: 7 days 07/29/2022 Not-Taki ng Ibuprofen 200 MG 2 tablets with food or milk as needed Orally every 8 hrs Not-Taking Omeprazole 20 MG TAKE 1 CAPSULE BY [facility] EVERY DAY 30 MINUTES BEFORE MORNING MEAL FOR 30 DAYS; Duration: 30 days Not-Taking Naprosyn 500 MG 1 tablet with food o r milk as needed Orally every 12 hrs; Duration: 30 days 11/26/2022 Not-Taking Social History Tobacco Use: Social History Observation [...] Problem Status W/U Status Risk Notes Problem Asthma (146199047) Asthma (J45.909) Active confirmed Problem Weight loss (239733720) Weight loss (R63.4) Active confirmed Vital Signs Temperature 98.1 degrees Fahrenheit 02/10/20 25 Blood pressure systolic 122 mm Hg 02/10/20 25 Blood pressure diastolic 76 mm Hg 025 Heart Rate 55 /min 02/09/2025 Respiratory Rate 16 /min 02/09/2025 Height 64.5 in 02/09/2025 Weight 124 lbs 02/09/2025 BMI 20.95 kg/m2 02/09/2025 Oximetry 100 % 02/09/2025 ple Encounters Encounter Location Date Provider Diagnosis [facility] [address] [address] 02/09/2025 Jeremiah Hernandez Asthma J45.909 ; Nec k pain M54.2 ; Other chronic pain G89.29 ; Rhinitis, unspecified type J31.0 ; Gastroesophageal reflux disease without esophagitis K21.9 and Weight loss R63.4 Assessments Encounter Date Diagnosis (ICD Code) Assessment Notes Treatment Notes Treatment Clinical Notes Section Notes 02/09/2025 Asthma (ICD-10 - J45.909) Asthma in Adults: Care Instructions material was published 02/09/2025 Neck pain (ICD-10 - M54.2) 02/09/2025 Other chronic pain (ICD-10 - G89.29) 02/09/2025 Rhinitis, unspecified type (ICD-10 - J31.0) 02/09/2025 Gastroesophageal reflux disease without esophagitis (ICD-10 - K21.9) 02/09/2025 Weight loss (ICD-10 - R63.4) Plan Of Treatment Medication Medication Name Sig Start Date Stop Date Notes Albuterol Sulfate HFA 108 (9 0 Base) MCG/ACT 2 puff Inhalation every 6 hrs; Duration: 30 days 02/09/2025 Treatment Notes Assessment Notes Asthma Asthma in Adults: Ca re Instructions material was published Progress Notes * Carla GARCIAB:2000 (25 yo F)Acc No.[id number]:02/09/2025 Progress Notes Patient: Lupis BOWERS Provider: Fermin Hernandez M.D. :2000 A ge:24 Y S ex:Female Date:02/09/2025 Address:[address] [place] [address] Subjective: * Chief Complaints: * 1 . C/o asthma flair. 2. C/o neck pain x 3 years. * Medical History: M edical History Verified. * Surgical History: A ppendectomy 2017. * Family History: F ather: alive. M other: alive. 1 brother(s) - healthy. . Mother - Thyroid disease Family Hx of Thyroid disease. * Social History: T obacco Use: T obacco Use/Smoking A re you a n onsmoker. D rugs/Alcohol: D rugs H ave you used drugs other than those for medical reasons in the past 12 months??No. A lcohol Screen (Audit-C) D id you have a drink containing alcohol in the past year? Y es, H ow often did you have a drink containing alcohol in the past year? 2 to 4 times a month (2 points), H ow many drinks did you have on a typical day when you were drinking in the past year? 1 or 2 drinks (0 point), H ow often did you have 6 or more drinks on one occasion in the past year? N ever (0 point), P oints 2 , I nterpretation N egative. C affeine I ntake: 1 -2 cups per day. D o you smoke marijuana?: Admits. Do you drink alcohol?: Socially. * Medications: N ot-Taking/PRN Naprosyn 500 MG Tablet 1 tablet with food or milk as needed Orally every 12 hrs , Not-Taking/PRN Omeprazole 20 MG Capsule Delayed Release TAKE [...] as needed Orally Three times a day , Medication List reviewed and reconciled with the patient * Allergies: N .K.D.A. Objective: * Vitals: T emp:98.1F, HR:55/min, BP:122/76mm Hg, Wt:124lbs, BMI:20.95Index, Ht: 64.5 in, RR:16/min, Oxygen sat %:100%, Peak Flow:RA, Ht-cm: 163.83 cm, Wt-k.25 kg. ple. Assessment: * Assessment: 1. A sthma - J45.909 (Primary) 2 . N rupinder pain - M54.2 3 .?Other chronic pain - G89.29 4 . R hinitis, unspecified type - J31.0 ? 5 . G astroesophageal reflux disease without esophagitis - K21.9 6 .?Weight loss - R63.4 Plan: * Treatment: * Preventive Medicine: YOUR PREVENTIVE WELLNESS PLAN: B SC, Height, and Weight: M y BMI, height, and weight were taken on: 0 02/09/2025. * * Electronic signature of Yonas Hernandez MD on 03/25/2025 at 11:11 AM EDT Sign off status: Pending * Provider: Fermin Hernandez M.D. Date: 0 02/09/2025 Generated for Carole stewart/Aneudy/Adoreitting on: 1 11:11 AM EDT
--- OUTSIDE RECORDS SUMMARY | 2025-02-16 04:45 | XMS_ITS ---
Author Organization [facility] Address [address] [address] Care Team Providers Care Label Operator Name Role Phone Jeremiah Hernandez Primary Care Provider [phone] PHIL Encounters Encounter Location Date Provider Diagnosis [address] [place] [address] 02/16/2025 Jeremiah Hernandez Plan Of Treatment No Information Progress Notes * Tatum GARCIAaDOB:2000 (25 yo F)Acc No.[id number]:02/16/2025 Progress Notes Patient: Lupis BOWERS Provider: Fermin Hernandez M.D. :2000 A ge:25 Y S ex:Female Date:02/16/2025 Address:[address] [place], [place] [id number] Subjective: * Chief Complaints: * [address] PHIL. * Medical History: Objective: * Vitals: Assessment: Plan: * Treatment: * * Electronic signature of Yonas Hernandez MD on 03/25/2025 at 11:12 AM EDT Sign off status: Pending * Provider: Fermin Hernandez M.D. Date: 0 02/16/2025 Generated for Printi ng/Faxing/eTransmitting on: 1 11:12 AM EDT
--- OUTSIDE RECORDS SUMMARY | 2025-03-02 04:15 | XMS_ITS ---
[facility] Address [address] [address] Care Team Providers Care Decontamination Technician Name Role Phone Jeremiah Hernandez Primary Care Provider Encounters Encounter Location Date Provider Diagnosis [address] [place] [address] 03/02/2025 Jeremiah Hernandez Plan Of Treatment No Information Progress Notes * JOSETatumaDOB:2000 (25 yo F)Acc No.[id number]:03/02/2025 Progress Notes Patient: Lupis BOWERS Provider: Fermin Hernandez M.D. :2000 A ge:25 Y S ex:Female Date:03/02/2025 Address:[address] [place] [address] Subjective: * Chief Complaints: * * Medical History: Objective: * Vitals: Assessment: Plan: * Treatment: * * Electronic signature of Yonas Hernandez MD on 03/25/2025 at 11:12 AM EDT Sign off status: Pending * Provider: Fermin Hernandez M.D. Date: 0 03/02/2025 Generated for Carole stewart/Aneudy/eTransmitting on: 1 11:12 AM EDT
--- OUTSIDE RECORDS SUMMARY | 2025-03-25 10:12 | XMS_ITS | Clinical Summary ---
Author Organization [facility] Address [address] [facility] [place] [address] Care Team Providers Care Tuber Helper Name Role Phone Nusrat Jose MD Primary Care Provider [phone] Nusrat Jose MD Unavailable [phone] Source Comments [facility],non-owned Affiliates and Associated Physician Practices is amultiple site organization consisting of ambulatory clinics and hospital sitesin [place], [place], [place] and [place]. This disclosure is being madepursuant to the Care Everywhere program and may not contain all information available regarding this patient. Last updated 18.[facility] Allergies Active Allergy Reactions Criticality Noted Date Comments Shellfish Allergy Other 08/26/2018 Allergy test Medications * Be aware that medications may not be up to date on this document. Alwaysverify current medications with the patient. medroxyPROGESTE Mauri (DEPO-PROVERA) 150 MG/ML vial Inject 150 mg into muscle Every 90 days 06/07/2018 Active montelukast (SINGULAIR) 10 MG tabletIndicatio ns:Seasonal allergic rhinitis due to pollen Take 1 tablet by mouth at bedtime 90 tablet 2 11/15/2018 Active medroxyPROGESTE Mauri (DEPO-PROVERA) 150 MG/ML vial INJECT 1 ML INTO MUSCLE ONCE FOR 1 DOSE 1 mL 12/16/2018 Active Active Problems Problem Noted Date Diagnosed Date Dysuria 06/23/2018 Well child visit 04/10/2014 Overview (03/26/2018): 15 yr 01/29/16 17 yr 03/08/17 18 yr 03/26/18 Wears glasses 04/10/2014 Screening for condition 04/10/2014 Overview (03/21/2015): Hgb: 12.7 (04/10/14) Immunizations Immunization Administration Dates Next Due DTaP VACCINE IM [...] ML (IIV4) 03/08/2017,07/01/2016 MENINGOCOCAL MENINGITIS 05/10/2013 MENINGOCOCCAL ACWY (MCV4P) VAC IM 07/01/2016 MMR 02/25/2005,05/19/2001 POLIO IPV 02/25/2005, 1,2000,06/28,2000 TDAP (7yrs+) 02/17/2013 VARICELLA 05/10/2013,09/25/2004 Social History Tobacco Use Types Packs/Day Years Used Date Smoking Tobacco: Never Alcohol Use Standard Drinks/Week Comments No 0 (1 standard drink = 0.6 oz pur e alcohol) Comments No Sex and Gender Information Value Date Recorded Sex Assigned at Not on file Legal Sex Female 3:56 PM CDT Gender Identity Not on file Sexual Orientation Not on file Last Filed Vital Signs Vital Sign Reading Time Taken Comments Blood Pressure 118/72 03/26/2018 9:29 AM CDT Pulse - - Temperature 37.2 C (99 F) 06/22/2018 4:25 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 Respiratory Rate - - Oxygen Saturation - - Inhaled Oxygen Concentration - - Weight 68.3 kg (150 lb 9.6 oz) 06/22/2018 4:25 P M BOOKKEEPING CLERKS SUPERVISOR Height 163 cm (5' 4.17) 03/26/2018 9:29 AM CDT Body Mass Index 25.71 03/26/2018 9:29 AM CDT Plan of Treatment Health Maintenance Due Date Last Done Comments HEPATITIS C SCREENING 02/06/2018 CHLAMYDIA/GONORRHEA SCREENING 09/24/2018 09/24/2017 DTAP/TDAP/TD VACCINES (7 - Td or Tdap) 02/17/2023 02/17/2013, 02/25/2005, 04/28/2001, Additional history exists DEPRESSION SCREENING 06/21/2024 COVID-19 VACCINE ( season) 2025 INFLUENZA VACCINE (#1) 2025 7, 07/01/2016, 04/10/2014, Additional history exists ZOSTER VACCINE (1 of 2) 02/10/2050 HEPATITIS [...] time) Exercise On track( 019 4:26 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) No Giselle Cornejo Use safety retraint in car Lifestyle On track( 019 4:26 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) No Marina Srinivasan Procedures Procedure Name Priority Date/Time Associated Diagnosis [...] CDT 10/27/2017 Narrative Resulting Agency Comment [facility] [place] [address] [facility] [id number] Nusrat Jose MD LAB - SEROLOGY ORDERABLES Final Result [facility] INSURANCE BILL [address] [place] [address] * CHLAMYDIA + GC AMPLIFIED PROBE (09/24/2017 4:04 PM CDT) Chlamydia SEA Urine Negative Negative [facility] INSURANCE BILL GC SEA Urine Negative Negative [facility] INSURANCE BILL Microbiology URINE / Unknown 09/24/2017 4 :04 PM CDT 09/24/2017 Narrative Resulting Agency Comment [facility] [place] [address] [facility] [place] [id number] Nusrat Jose MD LAB - MICROBIOLOGY ORDERABLES F inal Result [facility] INSURANCE BILL [address] [place] [address] from Last 3 Months or Most Recently Relevant to Health Maintenance Insurance MEDICAID - [place] [facility] MEDICAID - [facility] MEDICAID - OUT OF [facility] Care Teams Tuber Helper Relationship Specialty Start Date End Date Nusrat Jose MD PCP - General 07/27/18 Nusrat Jose MD [address] [place] [id number] Pediatrics 07/27/18
--- OUTSIDE RECORDS SUMMARY | 2025-03-25 10:12 | XMS_ITS | Patient Health Record ---
Author Organization [facility] Address [address] [address] Care Team Providers Care Clinical Data Specialist Name Role Phone Jeremiah Hernandez Primary Care Provider [phone] Allergies No Known Allergies Reason For Referral [...] Omeprazole 20 MG TAKE 1 CAPSULE BY [facility] EVERY DAY 30 MINUTES BEFORE MORNING MEAL [...] Status W/U Status Risk Notes Problem Asthma (642172259) Asthma (J45.909) Active conf irmed Problem Weight loss (343341562) Weight loss (R63.4) Active confirmed Problem Blood chemistry abnormal (202691097) Abnormal thyroid blood test (R79.89) Active confirmed Problem Excessive sweating (67260030) Perspiration-exces sive (R61) Active confirmed Problem Sleep disturbance (71636484) Sleep disturbance (G47.9) Active confirmed Problem History of excision of intestinal structure (115899126) S/P laparoscopic appendectomy (Z90.49) Active confirmed Problem Acute non-infective otitis externa (348732433) Acute otitis externa of right ear, unspecified type (H60.501) Active confirmed Problem Impacted cerumen (13159996) Impacted cerumen of right ear (H61.21) Active confirmed Problem Lymphadenitis (14705766) Lymphadenitis (I88.9) Active confirmed Problem Neck pain (19736152) Neck pain (M54.2) Active confirmed Problem Gastroesophageal reflux disease without esophagitis (305685006) Gastroesophageal reflux disease without esophagitis (K21.9) Active confirmed Problem Anxiety (64308314) Anxiety (F41.9) Active confi rmed Problem Palpitations (91199695) Palpitations (R00.2) Active confirmed Problem Pain of left knee joint (finding) (587252061533739) Pain in left knee (M25.562) Active confirmed Problem Chronic pain (81231166) Other chronic pain (G89.29) Active confirmed Problem Disease caused by Severe acute respiratory syndrome coronavirus 2 (disorder) (153657771) COVID-19 virus infection (U07.1) Active confirmed Problem Chronic rhinitis (77481794) Rhinitis, unspecified type (J31.0) Active confirmed Problem Acute pharyngitis (403690255) Pharyngitis, unspecified etiology (J02.9) Active confirmed Problem Bronchitis (28528082) Bronchitis (J40) Active confirmed Vital Signs Heart Rate 55 /min 02/09/2025 ple Temperature 98.1 degrees Fahrenheit 02/09/2025 ple Respiratory Rate 16 /min 02/09/2025 ple Oximetry 100 % 02/09/2025 ple Blood pressure diastolic 76 mm Hg 02/09/2025 ple Height 64.5 in 02/09/2025 ple Blood pressure systolic 122 mm Hg 02/09/2025 ple Weight 124 lbs 02/09/2025 ple BMI 20.95 kg/m2 02/09/2025 ple Encounters Encounter Location Date Provider Diagnosis [address] [address] 02/09/2025 Jeremiah Hernandez Asthma J45.909 ; Nec [...] loss (ICD-10 - R63.4) Plan Of Treatment Pending Test Test Name [...] End Date [employer] [address] [facility] [place] [address] [id number] Lupis Luther Self - patient is the insured 2 Medical (General) History Surgical History Surgery Date(Month/Year) Appendectomy 2018 Hospitalization History Reason Date(Month/Year)
[2025-03-25 10:16] VITALS: BP 137/78; PULSE 89; RESP 16; TEMP 37.1; O2SAT 100
--- NOTE | 2025-03-25 10:34 | ED_ITS ---
HPI - URI/Sore Throat General Chief Complaint: Upper Respiratory Infection Stated Complaint: Chest Congestion/Fever/Runny Nose Time Seen by Provider: 03/25/25 10:20 Source: patient and RN notes reviewed Mode of arrival: ambulatory Limitations: no limitations History of Present Illness HPI Narrative: 25-year-old female presents Express Care complaining of cough, congestion, runny nose, chest congestion for proximally 3 days. Patient denies any fevers, body aches, chills, nausea vomiting, diarrhea, sore throat, earache, chest pain, difficulty breathing, abdominal pain, or any other symptoms. Patient taking Da yQuil and NyQuil to help with symptoms. Patient has a history of asthma. Related Data Allergies Allergy/AdvReac Type Severity Reaction Status Date / Time shellfish derived Allergy Unknown Unknown Verified 09/15/24 15:58 ENVIRONMENTAL Allergy Unknown Unknown Uncoded 06/15/24 08:49 Review of Systems Review of Systems: CONSTITUTIONAL: Denies fever, chills, or sweats. EYES: Denies visual changes, redness, or discharge. ENT: Positive for rhinorrhea, congestion, sore throat. Negative for otalgia. CARDIOVASCULAR: Denies chest pain, palpitations, or edema. RESPIRATORY: Positive for cough. Negative for wheezing or dyspnea. GASTROINTESTINAL: Denies abdominal pain, nausea, vomiting, or diarrhea. GENITOURINARY: Denies dysuria or hematuria. SKIN: Denies rash or itching. MUSCULOSKELETAL: Denies back pain, joint pain, or myalgia. NEUROLOGIC: Denies headache, numbness, or weakness. PSYCHIATRIC: Denies anxiety or depression. All other systems reviewed are negative, except as documented in HPI. [facility] Past Medical History Medical History Appendicitis with peritonitis Seasonal allergies Patient denies medical problems Surgical History Surgical History History of appendectomy Social History Social History Smoking status: Never smoker Alcohol intake: never Comments At the time of my signature, I reviewed and agree with the nursing past medical, surgical, social, and family history. There is no relevant family history pertinent to the patient complaint. Exam Narrative: GENERAL: This is a well-nourished, well-developed adult, in no apparent distress. They are non ill-appearing, nontoxic appearing. HEAD: normocephalic, atraumatic. EYES: Sclera clear/white. Conjunctiva normal. Vision is grossly intact. Extraocular movements intact EARS: External ears normal, auditory canals clear and without drainage, TMs normal without perforation. Hearing grossly intact. NOSE: External nose normal with no obvious nasal discharge, nasal turbinates erythematous, no rhinorrhea. THROAT: Mucous membranes moist, posterior pharynx erythematous. Uvula midline. Postnasal drip present. NECK: Neck supple, non-tender without lymphadenopathy, masses or thyromegaly. CARDIOVASCULAR: Regular rate and rhythm without murmurs, gallops, or rubs. RESPIRATORY: In expiratory wheeze present to left lower lobe. Otherwise lungs clear throughout. Breath sounds equal bilaterally. No rales, or rhonchi. Respiratory rate normal, respiratory effort nonlabored, no respiratory distress SKIN: warm, Dry, intact with no suspicious lesions or rash, good texture and turgor. NEURO: awake, alert, and oriented to person, place and time. There were no obvious focal neurologic abnormalities. EXTREMITIES: No joint tenderness, effusion, or edema noted. BACK: Nontender without deformity. No CVA tenderness. Course Course Emergency Course: Portions of this record may have been created with voice recognition software Level of Care: Express Care Visit Vital Signs Vital signs: Vital Signs Temperature 98.7 F 03/25/25 10:16 Pulse Rate 89 03/25/25 10:16 Respiratory Rate 16 03/25/25 10:16 Blood Pressure 137/78 03/25/25 10:16 Pulse Oximetry 100 03/25/25 10:16 Oxygen Delivery Room Air 03/25/25 10:16 Temperature 98.7 F 03/25/25 10:16 Pulse Rate 89 03/25/25 10:16 Respiratory Rate 16 03/25/25 10:16 Blood Pressure 137/78 03/25/25 10:16 Pulse Oximetry 100 03/25/25 10:16 Oxygen Delivery Room Air 03/25/25 10:16 Reviewed MDM - URI/Sore Throat MDM Narrative Medical decision making narrative: Rapid COVID positive. Flu negative. Symptoms consistent with COVID. Given patient's wheezing will prescribe course of Medrol Dosepak given her history of asthma. Advised patient to use inhaler as needed for wheezing or shortness of breath. Patient is in no apparent distress, no respiratory distress, hemodynamically stable, normal oxygen saturations. Discussed physical exam findings. Advised supportive measures and signs/symptoms to go to the ER. Pt is appropriate for outpt treatment and f/u. Differential Diagnosis Differential diagnosis: Likely upper respiratory infection, sinusitis, viral infection, bronchitis and other (COVID) Lab Data Attestation: I reviewed the patient's lab results. Critical Care Time Critical Care Time Critical Care Time: No Discharge Plan Discharge Clinical Impression: COVID Patient Disposition: Home Condition: Stable Instructions: COVID-19 (Coronavirus Disease 2019) (ED) Additional Instructions: Tested positive for COVID, COVID is normally self-limiting number resolve within 7-14 days. COVID is a virus, therefore antibiotics will not work on it. You should avoid crowds until you are fever free for 24 hours without the use of fever reducing medications, or the symptoms are improved Rest. Drink plenty of fluids. Take the Medrol Dosepak as directed. Use your inhaler as prescribed for shortness of breath or wheezing. You may take ibuprofen 600 mg to 800 mg every 6-8 hours. Do not exceed more than 800 mg of ibuprofen per dose. Do not exceed more than 3200 mg ibuprofen in a day. You may take up to 1000 mg Tylenol every 6-8 hours. Do not exceed 1000 mg per dose, do exceed more than 4000 mg of Tylenol in a day. Recommend Flonase spray and Zyrtec (or Claritin/Keiry) for sinus pressure/congestion, follow instructions on the bottle. Follow up with your primary care provider 5-7 days. Go to the ER for worsening symptoms, difficulty breathing, chest pain, nausea, vomiting, or any serious concerns. Patient Language: Kiswahili Prescriptions: New methylprednisolone 4 mg tablets,dose pack See Rx Instructions .ROUTE .COMPLEX Qty: 21 0RF Rx Instructions: for 6 days No Action doxycycline monohydrate 100 mg tablet 100 mg PO BID Qty: 14 0RF albuterol sulfate 90 mcg/actuation HFA aerosol inhaler 2 puff inhalation QID PRN (Reason: shortness of breath or wheezing) Qty: 6.7 0RF (DME) Aerochamber MV Spacer See Rx Instructions .Route Qty: 1 0RF Rx Instructions: As directed Follow-up/Referrals: ,Jeremiah Rowland MD [Primary Care Provider] Time of Disposition: 10:34
[2025-03-25 10:38] LABS: EDCOVIDSCREEN Positive (Negative); EDINFLUASCREEN Negative (Negative); EDINFLUBSCREEN Negative (Negative)
== END 2025-03-25 10:40 | disposition home or self-care (01) ==
PROVIDERS: PCP Internal Medicine
DX: U07.1 COVID-19 (principal)
CPT/HCPCS: 87426; 87804; 99213; G0463